=== PATIENT | male | born 1990 | race Two or more races ===

== ENCOUNTER 2018-09-07 10:11 | Emergency (ER) | payer OTHER ==
[~2018-09-07] VITALS: Ht 167.6 cm; Wt 72.1 kg
[2018-09-07] MEDS ORDERED: methylPREDNISolone SOD SUCC 125 MG/2 ML VIAL IV ONE (10:15)
[2018-09-07] MEDS ORDERED: IV NORMAL SALINE 1000 ML BAG IV ONE (10:15)
[2018-09-07] MEDS ORDERED: FAMOTIDINE. 20 MG/2 ML VIAL IV ONE ×2 (10:15→10:18)
[2018-09-07] MEDS ORDERED: diphenhydrAMINE 50 MG/1 ML VIAL IV ONE (10:15)
[2018-09-07] MEDS ORDERED: diphenhydrAMINE 50 MG/1 ML VIAL ONE (10:18)
[2018-09-07] MEDS ORDERED: methylPREDNISolone SOD SUCC 125 MG/2 ML VIAL ONE (10:18)
[2018-09-07] MEDS ORDERED: DOXY50CA2 PO (10:22)
--- NOTE | 2018-09-07 10:27 | NUR ---
PT A/OX4, PRESENTS TO THE ER C/O ALLERGIC REACTION TO BEE STING. PT REPORTS HE HAS A HX OF ALLERGIC REACTION TO BEE STING AND CARRIES AN EPI-PEN, BUT FORGOT HIS EPI-PEN AT HOME. PT IS OF CLEAR SPEECH, VSS, NAD AT THIS TIME. REDNESS/SWELLING ON L FOERARM FROM THE BEE STING. NO RESPIRATORY DISTRESS NOTED AT THIS TIME. PT DENIES PAIN, C/P, SOB, N/V/D, DIZZINESS, HEADACHE.
--- NOTE | 2018-09-07 11:45 | NUR ---
Patient discharged to home in stable conditon. Written and verbal after care instructions given. Patient verbalizes understanding of instructions. ALL BELONGINGS W/ PT. PT SELF-AMBULATED W/O DIFFICULTY. 20G IV ACCESS IN L FOREARM REMOVED PRIOR TO D/C - INNER CANNULA INTACT.
[2018-09-07 11:47] VITALS: BP 124/78
== END 2018-09-07 11:48 | disposition home or self-care (01) ==
LOC: ER 10:11
DX: T63.441A Toxic effect of venom of bees, accidental (unintentional), initial encounter (principal); Z79.2 Long term (current) use of antibiotics; Z91.030 Bee allergy status; Y92.89 Other specified places as the place of occurrence of the external cause
CPT/HCPCS: 96374; 96375; 99283; J1200; J2930; J3490; A4663; J7030